=== PATIENT | male | born 1970 | race African-American/Black ===

== ENCOUNTER 2017-12-21 22:45 | Emergency (ER) | payer OTHER ==
[~2017-12-21] VITALS: Ht 175.3 cm; Wt 61.2 kg
[2017-12-22 00:25] VITALS: BP 127/88
[2017-12-22] MEDS ORDERED: CEPHALEXIN500 MG ORAL (00:28)
[2017-12-22 00:30] VITALS: BP 127/88
--- NOTE | 2017-12-22 05:10 | Emergency Room Report ---
History of Present Illness General Chief Complaint: Skin Rash/Abscess Source: Patient Present Illness HPI The patient is a 47-year-old male who presented after increased left chest wall redness. Patient stated he had previous cyst aspiration. He was noted to have the right axillary lesion. Patient reports being a smoker. He denies any weight loss. He reports regular alcohol use. The patient denied any fever. He denied severe shortness of breath. Allergies: Coded Allergies: No Known Allergies (Unverified , 12/21/17) Patient History Past Medical History: see triage record Reviewed Nursing Documentation: PMH: Agreed Nursing Documentation-PMH Past Medical History: No Stated History Review of Systems All Other Systems: negative except mentioned in HPI Physical Exam Vital Signs Date Time Temp Pulse Resp B/P (MAP) Pulse Ox O2 Delivery O2 Flow Rate FiO2 12/21/17 22:48 98.5 110 18 134/95 98 Room Air 98.4 General Appearance: well appearing, no apparent distress, alert, GCS 15, thin, Chronically Ill Head: normocephalic, atraumatic ENT: hearing grossly normal, normal voice Neck: full range of motion, supple Respiratory: lungs clear, no respiratory distress, speaking full sentences Musculoskeletal: normal inspection Neurologic: alert, oriented x3, responsive, special effects artist III-XII nml as tested, motor strength/tone normal, normal gait Psychiatric: normal inspection, judgement/insight normal, mood/affect normal Skin: other - slight erythema to left chest wall near nipple. Lymphatic: other - right axillary adenopathy without fluctuance mobile Medical Decision Making Diagnostic Impression: Primary Impression: Gynecomastia Additional Impression: Lymphadenopathy, axillary ER Course The patient presented for left-sided chest wall swelling. The differential diagnosis included was not limited to cellulitis, abscess, gynecomastia, cancer among others. The patient appears to be somewhat chronically ill. The chest x- ray one view interpreted by me showed normal cardiac size without evident infiltrate. The patient was advised that radiology would look at this x-ray and may find other findings. The patient is advised follow-up with his primary care physician for reevaluation and further workup of axillary lymphadenopathy as well as left-sided breast enlargement. This may be related patient's alcohol use however the given the patient's smoking history further outpatient workup is warranted. The patient was advised of this and was advised to discontinue alcohol use. Patient is advised follow-up with his primary care physician in one to 2 days for reexamination and further evaluation of discomfort. Last Vital Signs Date Time Temp Pulse Resp B/P (MAP) Pulse Ox O2 Delivery O2 Flow Rate FiO2 12/22/17 00:30 98.4 71 18 127/88 98 Room Air 98.4 Status: improved Disposition: HOME, SELF-CARE Condition: Stable Scripts Cephalexin* (KEFLEX*) 500 Mg Capsule 500 MG ORAL EVERY 6 HOURS, #28 CAP Prov: Sung Bush MD 12/22/17 Patient Instructions: Lymphadenopathy Sung Bush MD Dec 22, 2017 05:10
--- NOTE | 2017-12-22 12:30 | Diagnostic Imaging Report ---
Indication: Dyspnea Comparison: None A single view chest radiograph was obtained. Findings: Cardiomediastinal appearance is within normal limits for age. Pulmonary vascularity is appropriate. The diaphragmatic contour is smooth and costophrenic angles are sharp. No pleural effusions are identified. The bones are unremarkable. Impression: No acute findings
== END 2017-12-22 00:40 | disposition home or self-care (01) ==
LOC: EMR 23:05
DX: N62 Hypertrophy of breast (principal); R59.0 Localized enlarged lymph nodes; R06.00 Dyspnea, unspecified
CPT/HCPCS: 71045; 99283